=== PATIENT | male | born 1950 | race Caucasian/White ===

== ENCOUNTER 2018-05-14 07:02 | Day surgery (SDC) | payer OTHER | END 2018-05-14 11:40 | disposition home or self-care (01) | LOC: AMB-ENDOS 07:02 → CIR.AMB 07:02 → AMB-ENDOS 11:40 → CIR.AMB 12:19 | DX: K64.8 Other hemorrhoids (principal); Z12.11 Encounter for screening for malignant neoplasm of colon ==